=== PATIENT | female | born 1985 | race Caucasian/White ===

== ENCOUNTER 2022-01-01 21:15 | Emergency (ER) | payer BC, SELFPAY ==
--- NOTE | ~2022-01-01 | XR_ITS ---
XR chest 2V DATE: 01/01/2022 21:52 INDICATION: Midsternal stabbing chest pain for 5 days TECHNIQUE: PA and lateral views COMPARISON: None FINDINGS: Normal heart size. No hilar or mediastinal enlargement. No pulmonary infiltrate or consolid ation, pleural effusion or pulmonary vascular congestion or pneumothorax. Included skeletal structure s are unremarkable. IMPRESSION: Negative Reviewed, dictated and finalized at location A. IMPRESSION: Negative
[2022-01-01 21:25] VITALS: BP 115/81; PULSE 87; RESP 16; TEMP 36.3; O2SAT 98
--- NOTE | 2022-01-01 21:28 | ECG_ITS ---
Measurements Intervals [place] Rate: 96 P: 59 [place]: 123 QRS: 10 QRSD: 86 T: 10 QT: 349 QTc: 443 Interpretive Statements SINUS RHYTHM NORMAL ECG Electronically Signed On 01-02-2022 6:34:29 CDT by Adams Amaya D.O.
--- NOTE | 2022-01-01 21:30 | ED.CHESTPAIN ---
HPI - Chest Pain General Chief Complaint: Chest Pain Stated Complaint: Unspecified Time Seen by Provider: 01/01/22 21:19 Source: RN notes reviewed History of Present Illness HPI narrative: Patient presents emergency department for chest pain. Patient states that just prior to arrival she was driving her car when she got a sharp stabbing pain in the midsternal chest states that it felt like a initial wave of heat coming up from her belly up into her chest followed by the sharp stabbing pain and some shortness of breath states she did feel intermittently dizzy with it but is now improved states now she only has mild residual pain in the midsternal chest states she has had similar episodes over the past 3 days she denies any fevers or chills abdominal pain nausea vomiting diarrhea or any other symptoms Related Data Allergies Allergy/AdvReac Type Severity Reaction Status Date / Time No Known Allergies Allergy Verified 01/01/22 21:34 Review of Systems Review of Systems: Gen.: Denies fevers or chills ENT: Denies congestion Respiratory: Reports shortness of breath CV reports chest pain GI: Denies abdominal pain nausea, emesis or diarrhea denies Musculoskeletal: Denies back pain or muscle pain Neuro: Denies numbness, tingling, weakness or focal weakness Skin: Denies rash Except as documented, all other systems reviewed and negative PMFSH Past Medical History Medical History (Updated 01/02/22 @ 01:55 by Randy Vivas DO) Patient denies significant medical history Social History Social History (Updated 01/01/22 @ 21:31 by Randy Vivas DO) Smoking status: Never smoker Exam Narrative: APPEARANCE: No acute distress, nontoxic, resting in bed EYES: EOMI HEENT: Normocephalic, atraumatic, OMM RESPIRATORY: No respiratory distress Clear to auscultation bilaterally with no rhonchi wheezing or rales. CARDIOVASCULAR: Regular rate and rhythm without murmurs rubs or gallops. Chest: Tender to palpation over the midsternal chest wall no swelling or ecchymosis ABDOMINAL: Soft, nontender, nondistended, no rebound or guarding MUSCULOSKELETAl: Moves all extremities. No clubbing, cyanosis or edema. NEURO: Awake and alert. Following commands, speech normal, no focal deficits SKIN:: Warm, dry. No rashes lesions or abrasions PSYCHIATRIC: Normal affect/mood, Course Course Emergency Course: Patient with episode of feeling like she was getting hot flash and became tachycardic sinus tachycardia in the 120s that time patient was evaluated did appear anxious in appearance EKG was obtained that showed sinus tachycardia patient was given Ativan with resolution of symptoms Discussed with patient results of workup and diagnosis. Discussed need for follow-up with primary care, proper use of medication, and reasons to return to the emergency department. Patient understands and agrees to current treatment plan Vital Signs Vital signs: Vital Signs Temperature 97.3 F L 01/01/22 21:25 Pulse Rate 87 01/01/22 21:25 Respiratory Rate 16 01/01/22 21:25 Blood Pressure 115/81 01/01/22 21:25 Pulse Oximetry 98 01/01/22 21:25 Temperature 97.3 F L 01/01/22 21:25 Pulse Rate 83 01/01/22 22:16 Respiratory Rate 15 01/01/22 22:16 Blood Pressure 115/82 01/01/22 22:16 Pulse Oximetry 98 01/01/22 22:16 MDM - Chest Pain MDM Narrative Medical decision making narrative: Patient's EKGs and labs are without significant high risk changes. Cardiac risk factors reviewed. Patient is felt likely low risk for ACS and reasonable for further risk stratification testing as an outpatient. Pain was not sudden or maximal in onset without tearing or ripping quality. No other signs of symptoms suggest aortic dissection. A low-risk Wells criteria is noted, PE is felt to be unlikely. No pneumonia seen on evaluation today. Patient is felt to be a reasonable candidate for continued evaluation as an outpatient Lab Data Result diagra
[2022-01-01 21:32] VITALS: PULSE 81; RESP 13; O2SAT 98
[2022-01-01] MEDS: KETOROLAC 30 MG/ML VIAL (*BKC) IV PUSH (21:38)
[2022-01-01 21:44] LABS: Basophils Percent Auto 0.4 % (0.2-1.2); Eosinophils Absolute Auto 0.2 K/mm3 (0-0.3); Eosinophils Percent Auto 1.8 % (0-4.4); Hematocrit 40.5 % (37.0-47.0); Hemoglobin 13.7 g/dL (12.0-15.0); Immature Granulocyte Absolute 0.03 K/mm3 (0.00-0.031); Immature Granulocyte Percent A 0.3 % (0-0.5); Lymphocytes Percent Auto 13.3 % (18.3-44.2); Mean Corpuscular HGB Conc 33.8 g/dl (32-36); Mean Corpuscular Volume 88.8 fl (80-100); Mean Platelet Volume 9.8 fl (7.4-10.4); Monocytes Absolute Auto 0.7 K/mm3 (0.1-0.6); Monocytes Percent Auto 5.9 % (2.6-8.5); Neutrophils Absolute Auto 8.9 K/mm3 (1.3-6.7); Neutrophils Percent Auto 78.3 % (45.5-73.1); Platelet Count Result 313 k/mm3 (150-375); Red Blood Count 4.56 M/mm3 (4.2-5.4); Red Cell Distribution Width 12.7 % (11.5-14.5); White Blood Count 11.3 K/mm3 (4.5-10.0)
[2022-01-01 21:56] LABS: Alanine Aminotransferase 29 U/L (6-35); Albumin Level 4.3 g/dL (3.5-5.1); Alkaline Phosphatase 65 U/L (38-126); Anion Gap 8 mmol/L (8-16); Aspartate Amino Transferase 30 U/L (14-36); Bilirubin,Total 1.1 mg/dL (0.2-1.3); Blood Urea Nitrogen 12 mg/dL (7-17); Calcium 8.6 mg/dL (8.4-10.2); Carbon Dioxide 20 mmol/L (22-30); Chloride 108 mmol/L (98-107); Estimated Glomerular Filt Rate > 60; Glucose 101 mg/dL (65-110); Lipase 60 U/L (23-300); Prothrombin Time 13.2 Seconds (11.1-14.7); Sodium 136 mmol/L (137-145)
[2022-01-01 21:57] LABS: Partial Thromboplastin Time 28.8 SECONDS (22.3-36.8)
[2022-01-01 22:07] LABS: Troponin I < 0.012 ng/mL (0.000-0.034)
[2022-01-01 22:14] VITALS: PULSE 83; RESP 14; O2SAT 98
[2022-01-01 22:15] VITALS: PULSE 83; RESP 12; O2SAT 97
[2022-01-01 22:16] VITALS: BP 115/82; PULSE 83; RESP 15; O2SAT 98
[2022-01-01 22:23] LABS: D Dimer 0.26 ug/mL (<0.48)
[2022-01-01] MEDS: SODIUM CHLORIDE 0.9% IV 1,000 ML 999 ML IV CONT (23:36)
[2022-01-01] MEDS: LORazepam INJ (*CRX) 2 MG/ML VIAL 0.5 MG IV PUSH (23:36)
[2022-01-02 01:35] LABS: Troponin I < 0.012 ng/mL (0.000-0.034)
[2022-01-02 02:24] VITALS: BP 127/87; PULSE 92; RESP 18; O2SAT 99
--- NOTE | 2022-01-02 23:05 | ECG_ITS ---
Measurements Intervals [place] Rate: 107 P: 48 [place]: 134 QRS: 12 QRSD: 85 T: 10 QT: 345 QTc: 461 Interpretive Statements SINUS TACHYCARDIA DELAYED PRECORDIAL R/S TRANSITION BORDERLINE T WAVE ABNORMALITY- INFERIOR LEADS BASELINE WANDER- V6 BORDERLINE ECG Electronically Signed On 01-05-2022 10:39:23 CDT by Adams Amaya D.O.
== END 2022-01-02 02:28 | disposition home or self-care (01) ==
PROVIDERS: Emergency Provider Emergency Medicine
DX: R07.2 Precordial pain (principal); F41.9 Anxiety disorder, unspecified
CPT/HCPCS: 36415; 71046; 80053; 81025; 83690; 84484; 85025; 85380; 85610; 85730; 93005; 96361; 96374; 96375; 99284; A9270; J1885; J2060; J7030